=== PATIENT | female | born 1965 | race Caucasian/White ===

== ENCOUNTER 2022-01-08 16:46 | Emergency (ER) | payer OTHER ==
[2022-01-08 17:30] LABS: HEMOGLOBIN 13.3 gm/dl (12.3-15.3); RED BLOOD COUNT 4.45 M/UL (4.00-5.10); WHITE BLOOD COUNT 8.8 K/UL (4.5-11.0)
[2022-01-08 17:58] LABS: BUN/CREATININE RATIO 14 (0-10)
== END 2022-01-08 21:15 | disposition home or self-care (01) ==
LOC: ER1 16:46
PROVIDERS: Physician Assistant
DX: R07.9 Chest pain, unspecified (principal); R06.02 Shortness of breath; E11.9 Type 2 diabetes mellitus without complications; E78.5 Hyperlipidemia, unspecified; I10 Essential (primary) hypertension; Z88.0 Allergy status to penicillin; Z88.2 Allergy status to sulfonamides; Z86.711 Personal history of pulmonary embolism
CPT/HCPCS: 71045; 80053; 82550; 82553; 83880; 84484; 85025; 85379; 93005; 96374; 99285; J1885

== ENCOUNTER 2022-04-30 18:27 | Emergency (ER) | payer SELFPAY | END 2022-04-30 20:35 | disposition home or self-care (01) | LOC: ER1 18:27 | DX: S50.01XA Contusion of right elbow, initial encounter (principal); I10 Essential (primary) hypertension; E11.9 Type 2 diabetes mellitus without complications; E78.5 Hyperlipidemia, unspecified; Z88.0 Allergy status to penicillin; Z88.1 Allergy status to other antibiotic agents; W01.198A Fall on same level from slipping, tripping and stumbling with subsequent striking against other object, initial encounter | CPT/HCPCS: 73080; 96372; 99283; J1885 ==

== ENCOUNTER 2022-05-14 16:56 | Emergency (ER) | payer SELFPAY ==
[2022-05-14] MEDS ORDERED: HYDROCODON-ACE1 EAC4 PO (21:03)
== END 2022-05-14 21:45 | disposition home or self-care (01) ==
LOC: ER1 16:56
DX: S82.831A Other fracture of upper and lower end of right fibula, initial encounter for closed fracture (principal); E11.9 Type 2 diabetes mellitus without complications; I10 Essential (primary) hypertension; E78.5 Hyperlipidemia, unspecified; W01.0XXA Fall on same level from slipping, tripping and stumbling without subsequent striking against object, initial encounter; X50.1XXA Overexertion from prolonged static or awkward postures, initial encounter; Y92.009 Unspecified place in unspecified non-institutional (private) residence as the place of occurrence of the external cause
CPT/HCPCS: 73610; 73630; 99283

== ENCOUNTER → 2022-06-09 | Outpatient (CLI) | payer SELFPAY ==
[~2022-06-09] MED LIST: HYDROCODON-ACE1 EAC4 PO
== END ==
LOC: KOH-I 13:33
DX: M84.374A Stress fracture, right foot, initial encounter for fracture (principal); M84.375A Stress fracture, left foot, initial encounter for fracture
CPT/HCPCS: 73610; 73630